=== PATIENT | male | born 1980 ===

== ENCOUNTER 2024-11-11 05:15 | Day surgery (SDC) | payer OTHER ==
[2024-11-05 12:31] LABS: URINE APPEARANCE Clear; URINE BILIRRUBIN Negative (NEGATIVE); URINE BLOOD Negative; URINE COLOR Yellow; URINE KETONE Trace (NEGATIVE); URINE LEUKOCYTE Negative; URINE NITRATE Negative; URINE PROTEIN Negative (NEGATIVE); URINE UROBILINOGEN 1.0 E.U./dl
[2024-11-05 12:32] VITALS: BP 132/87
[2024-11-05 12:35] LABS: URINE BACTERIA 4.8 uL (0.0-1933); URINE EPITHELIAL CELLS 1.9 uL (0.0-38.8); URINE WBC 6.5 uL (0.0-23.2)
[2024-11-05 12:49] LABS: BASO % 0.7 % (0.1-1.2); EOS # 0.35 (0.04-0.54); EOS % 4.1 % (0.7-7.0); LYMPH # 1.81 (1.18-3.74); LYMPH % 21.2 % (19.3-53.1); MEAN PLATELET VOLUME 10.10 fl (9.4-12.4); MONO # 0.70 (0.24-0.82); MONO % 8.2 % (4.7-12.5); NEUT # 5.61 (1.56-6.13); NEUT % 65.7 % (34.0-71.1); RED CELL DISTRIBUTION WIDTH 14.3 % (11.6-14.4)
[2024-11-05 12:53] LABS: INR 1.01
[2024-11-05 13:03] LABS: ALT/SGPT 51.0 U/L (12-78); AST/SGOT 22.0 U/L (15-37); BILIRUBIN TOTAL 0.85 mg/dL (0.3-1.2); BUN CREA RATIO 14.0 (7.0-25.0); CREATININE SERUM 0.91 mg/dL (0.70-1.30); GFR 91.81; GLOBULINA 3.3 G/DL (2.4-3.5); GLUCOSE FASTING 86.0 mg/dL (65-100); OSMOLALITY SERUM 283.0 MOSM/KG (275-295)
[2024-11-05 13:32] LABS: URINE CAST 0.00 uL (0.0-1.40); URINE GLUCOSE >=1000 MG/DL (NEGATIVE); URINE RBC 1.9 uL (0.0-20.8)
[~2024-11-11] VITALS: Ht 167.6 cm; Wt 99.8 kg
[~2024-11-11 05:15] MED LIST: COZAAR25 MG PO; INVOKANA100 MG PO; OZEMPIC0.25 MG/02
[2024-11-11] MEDS ORDERED: CEFAZOLIN SODIUM 1,000 MG VIAL IV SCH (09:30)
[2024-11-11] MEDS ORDERED: MORPHINE SULFATE 4 MG/ML VIAL IV ONE ×2 (10:20→10:50)
[2024-11-11 12:04] VITALS: O2SAT 100
[2024-11-12 10:20] VITALS: BP 128/83
== END 2024-11-11 12:20 | disposition home or self-care (01) ==
LOC: CIR.AMB 05:15
PROVIDERS: ATTEND Surgery
DX: K80.10 Calculus of gallbladder with chronic cholecystitis without obstruction (principal)